=== PATIENT | female | born 1955 | race American Indian/Alaskan Native ===

== ENCOUNTER 2017-07-19 08:19 | Outpatient (CLI) | payer MEDICARE ==
--- NOTE | 2017-07-22 09:36 | Mammography Report ---
BILATERAL DIGITAL SCREENING MAMMOGRAM with CAD : 07/19/17 08:19:00 CLINICAL: Routine screening.Previous left benign biopsy. COMPARISON:06/20/15 and 06/03/14 FINDINGS: The breasts are heterogeneously dense, which may obscure small masses.Mild left upper outer postsurgical scar with a relatively large benign calcification. No mass, architectural distortion or suspicious calcifications. IMPRESSION: No mammographic evidence of malignancy. BI-RADS CATEGORY: 2 -- Benign RECOMMENDATION: Routine mammographic screening in one year. COMMENT: Patient follow-up letters are generated by our [employer] application.
== END 2017-07-19 08:20 | disposition home or self-care (01) ==
LOC: MAMMO 08:19
PROVIDERS: ATTEND Family Medicine
DX: Z12.31 Encounter for screening mammogram for malignant neoplasm of breast (principal)
CPT/HCPCS: 77067

== ENCOUNTER 2018-07-21 09:19 | Outpatient (CLI) | payer MEDICARE ==
--- NOTE | 2018-07-21 10:19 | Mammography Report ---
Screening mammogram: Routine views demonstrate a heterogeneous breast pattern which is generally symmetric in distribution. There is a focal area of architectural distortion in the superior left breast consistent with surgical site. The breast pattern is generally otherwise unremarkable. No interval change is identified when compared to prior examinations dating back to May 2015. CAD used. Impression: Stable exam. Recommendation: Annual mammogram followup.
== END 2018-07-21 09:20 | disposition home or self-care (01) ==
LOC: MAMMO 09:19
PROVIDERS: ATTEND Family Medicine
DX: Z12.31 Encounter for screening mammogram for malignant neoplasm of breast (principal)
CPT/HCPCS: 77067

== ENCOUNTER 2019-04-22 09:05 | Outpatient (CLI) | payer MEDICARE ==
--- NOTE | 2019-04-22 11:04 | Fluoroscopy Report ---
BARIUM SWALLOW Indication: R13.10 DYSPHAGIA. Technique: Single contrast barium technique utilized to evaluate the esophagus. FINDINGS: To begin the exam, swallowing was evaluated in the lateral position under direct fluorosco py. Swallowing was normal. Anterior fusion changes in the cervical spine are noted from C3-T1. Mild smooth narrowing is suspected in the distal esophagus. No discrete mass or mucosal irregularity. A barium tablet became lodged in the distal esophagus but eventually passed into the stomach. The re mainder of the esophagus is normal caliber. Occasional tertiary contractions were witnessed. No gastr oesophageal reflux. 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 Mild es ophageal dysmotility. Fluoroscopic time: 2.5 minutes Number of fluoroscopic images: 33 Signer Name: Silvano Guerrero Jr, MD Signed: 04/22/2019 11:00 AM Workstation Name: [id number]
== END 2019-04-22 09:06 | disposition home or self-care (01) ==
LOC: FLUORO 09:05
DX: R13.10 Dysphagia, unspecified (principal); K22.8 Other specified diseases of esophagus
CPT/HCPCS: 74220

== ENCOUNTER 2019-09-24 09:04 | Outpatient (CLI) | payer MEDICARE ==
--- NOTE | 2019-09-24 10:06 | Mammography Report ---
DIGITAL SCREENING MAMMOGRAM WITH CAD, 09/24/2019 INDICATION: Routine screening mammography. TECHNIQUE: Digital bilateral 2D mammography was obtained in the craniocaudal and mediolateral obliq ue projections. This examination was interpreted with the benefit of Computer-Aided Detection analysi s. COMPARISON: Prior mammograms 07/21/2018 and 07/19/2017 FINDINGS: Breast Density: The breasts are heterogeneously dense, which may obscure small masses. There is no evidence of dominant mass, suspicious calcifications or architectural distortion in eithe r breast. There is stable postsurgical change and stable benign-appearing calcifications seen in the left breast. There has been no significant change compared with the prior examinations. IMPRESSION: Follow up recommendation: Routine yearly BI-RADS Category 2: Benign. A "normal" or negative report should not discourage follow up or biopsy of a clinically significant f inding. A written summary of these findings will be mailed to the patient. The patient will be entered into a mammography reporting system which will generate a reminder letter for the patient's next appointmen t at the appropriate interval. The [employer] recommends yearly mammograms starting at age 40 and continuing as l haley as a woman is in good health. Breast MRI is recommended for women with an approximate 20-25% or greater lifetime risk of breast cancer, including women with a strong family history of breast or ova ean cancer or who have been treated for Hodgkin's disease. Signer Name: Alison Diaz MD Signed: 09/24/2019 10:01 AM Workstation Name: [id number]
== END 2019-09-24 09:05 | disposition home or self-care (01) ==
LOC: MAMMO 09:04
PROVIDERS: ATTEND Family Medicine
DX: Z12.31 Encounter for screening mammogram for malignant neoplasm of breast (principal)
CPT/HCPCS: 77067

== ENCOUNTER 2020-09-26 07:36 | Outpatient (CLI) | payer MEDICARE ==
--- NOTE | 2020-09-26 11:52 | Mammography Report ---
DIGITAL SCREENING MAMMOGRAM WITH CAD, 09/26/2020 CLINICAL INFORMATION / INDICATION: Routine screening mammography. ROUTINE TECHNIQUE: Digital bilateral 2D mammography was obtained in the craniocaudal and mediolateral obliqu e projections. This examination was interpreted with the benefit of Computer-Aided Detection analysis . COMPARISON: 06/01/13 through 09/24/19. FINDINGS: Breast Density: The breasts are heterogeneously dense, which may obscure small masses. No dominant mass, suspicious calcifications, or architectural distortion in the right breast. Left breast scarring and dystrophic calcifications are again identified. No new abnormality is seen. IMPRESSION: No mammographic evidence of malignancy. Follow up recommendation: Routine yearly BI-RADS Category 2: Benign. A "normal" or negative report should not discourage follow up or biopsy of a clinically significant f inding. A written summary of these findings will be mailed to the patient. The patient will be entered into a mammography reporting system which will generate a reminder letter for the patient's next appointmen t at the appropriate interval. The [employer] recommends yearly mammograms starting at age 40 and continuing as l haley as a woman is in good health. Breast MRI is recommended for women with an approximate 20-25% or greater lifetime risk of breast cancer, including women with a strong family history of breast or ova ean cancer or who have been treated for Hodgkin's disease. Signer Name: Ji Benavidez MD Signed: 09/26/2020 11:47 AM Workstation Name: [email or web address]
== END 2020-09-26 07:37 | disposition home or self-care (01) ==
LOC: MAMMO 07:36
PROVIDERS: ATTEND Family Medicine
DX: Z12.31 Encounter for screening mammogram for malignant neoplasm of breast (principal); N64.89 Other specified disorders of breast
CPT/HCPCS: 77067

== ENCOUNTER 2021-01-09 16:02 | Emergency (ER) | payer OTHER, MEDICARE ==
[2021-01-09 16:19] VITALS: BP 123/78
[2021-01-09] MEDS ORDERED: IBUPROFEN 800 MG TAB PO ONE (17:11)
--- NOTE | 2021-01-09 17:42 | XRay Report ---
CERVICAL SPINE 3 VIEWS INDICATION / CLINICAL INFORMATION: neck pain. COMPARISON: 08/02/09 FINDINGS: VERTEBRAE: No acute fracture. Interval ACDF from C3-C7 with anterior plate and interbody spacers. The left C7 anterior screw has backed out from the plate by about 7 mm. DISC SPACES / FACET JOINTS:No significant abnormality. PARASPINAL SOFT TISSUES:No significant abnormality. ADDITIONAL FINDINGS: None. Signer Name: Kori Lorenzo MD Signed: 01/09/2021 5:38 PM Workstation Name: [id number]
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
== END 2021-01-09 18:14 | disposition home or self-care (01) ==
LOC: ED 16:02
DX: S13.4XXA Sprain of ligaments of cervical spine, initial encounter (principal); M19.90 Unspecified osteoarthritis, unspecified site; M50.30 Other cervical disc degeneration, unspecified cervical region; Z98.890 Other specified postprocedural states; Z88.5 Allergy status to narcotic agent; V89.2XXA Person injured in unspecified motor-vehicle accident, traffic, initial encounter; Y93.89 Activity, other specified; Y92.89 Other specified places as the place of occurrence of the external cause; Y99.8 Other external cause status
CPT/HCPCS: 72040; 99283

== ENCOUNTER 2021-09-28 07:16 | Outpatient (CLI) | payer MEDICARE ==
--- NOTE | 2021-10-02 10:51 | Mammography Report ---
DIGITAL SCREENING MAMMOGRAM WITH CAD, 09/28/2021 CLINICAL INFORMATION / INDICATION: Routine screening mammography. TECHNIQUE: Digital bilateral 2D mammography was obtained in the craniocaudal and mediolateral obliqu e projections. This examination was interpreted with the benefit of Computer-Aided Detection analysis . COMPARISON: 09/26/2020, 09/24/2019 FINDINGS: Breast Density: The breasts are heterogeneously dense, which may obscure small masses. No dominant mass, suspicious calcifications, or architectural distortion in either breast. Left breast scarring and dystrophic calcifications have not significantly changed. IMPRESSION: No mammographic evidence of malignancy. Follow up recommendation: Routine yearly screening mammogram. BI-RADS Category 2: BENIGN. A "normal" or negative report should not discourage follow up or biopsy of a clinically significant f inding. A written summary of these findings will be mailed to the patient. The patient will be entered into a mammography reporting system which will generate a reminder letter for the patient's next appointmen t at the appropriate interval. The [employer] recommends yearly mammograms starting at age 40 and continuing as l haley as a woman is in good health. Breast MRI is recommended for women with an approximate 20-25% or greater lifetime risk of breast cancer, including women with a strong family history of breast or ova ean cancer or who have been treated for Hodgkin's disease. Signer Name: Willem Sandoval MD Signed: 10/02/2021 10:46 AM Workstation Name: [id number]
== END 2021-09-28 07:17 | disposition home or self-care (01) ==
LOC: MAMMO 07:16
PROVIDERS: ATTEND Family Medicine
DX: Z12.31 Encounter for screening mammogram for malignant neoplasm of breast (principal)
CPT/HCPCS: 77067

== ENCOUNTER 2021-11-26 03:46 | Emergency (ER) | payer MEDICARE | END 2021-11-26 11:20 | disposition left against medical advice (07) | LOC: ED 03:46 | DX: T14.8XXA Other injury of unspecified body region, initial encounter (principal); Z53.21 Procedure and treatment not carried out due to patient leaving prior to being seen by health care provider ==